=== PATIENT | male | born 1945 | race Caucasian/White ===

== ENCOUNTER 2019-06-08 11:07 | Emergency (ER) | payer OTHER ==
[2019-06-08] MEDS ORDERED: LIDOCAINE 1% MPF 5 ML VIAL ONE (12:22)
--- NOTE | 2019-06-08 13:05 | EDPHYS ---
Physician Documentation [facility] Name: Preston Mauro Age: 73 yrs Sex: Male : 1945 Arrival Date: 06/08/2019 Time: 11:10 Bed 19 Private MD: ED Physician Gregory Abrams HPI: 06/07 12:22 This 73 yrs old Male presents to ER via Ambulatory with complaints of Boil On la1 Back. 12:22 The patient presents with an abscess of the lumbar area, The patient presents with la1 cellulitis of the lumbar area. Description: The affected area is large, irregular, draining, erythematous, fluctuant. Onset: The symptoms/episode began/occurred 10 day(s) ago. Modifying factors: the symptoms are alleviated by nothing, the symptoms are aggravated by nothing. Severity of symptoms: At their worst the symptoms were moderate. The patient has not experienced similar symptoms in the past. pt has been on amoxicillin for the last 4 days. Historical: - Allergies: 11:29 No Known Allergies; hb - Immunization history:: Adult Immunizations up to date. - Social history:: Smoking status: Patient reports use of chewing tobacco. ROS: 12:23 Constitutional: Negative for fever, chills, and weight loss, Eyes: Negative for injury, la1 pain, redness, and discharge, ENT: Negative for injury, pain, and discharge, Neck: Negative for injury, pain, and swelling, Cardiovascular: Negative for chest pain, palpitations, and edema, Respiratory: Negative for shortness of breath, cough, wheezing, and pleuritic chest pain, Abdomen/GI: Negative for abdominal pain, nausea, vomiting, diarrhea, and constipation, MS/Extremity: Negative for injury and deformity, Neuro: Negative for headache, weakness, numbness, tingling, and seizure. 12:23 Skin: Positive for abscess, cellulitis, of the lumbar area and back. Exam: 12:24 Constitutional: This is a well developed, well nourished patient who is awake, alert, la1 and in no acute distress. Head/Face: Normocephalic, atraumatic. Chest/axilla: Normal chest wall appearance and motion. Nontender with no deformity. No lesions are appreciated. Cardiovascular: Regular rate and rhythm with a normal S1 and S2. No gallops, murmurs, or rubs. Normal PMI, no JVD. No pulse deficits. Respiratory: Lungs have equal breath sounds bilaterally, clear to auscultation Abdomen/GI: Soft, non-tender, with normal bowel sounds. Back: No spinal tenderness. No costovertebral tenderness. Full range of motion. 12:24 Skin: abscess, that is moderate sized, of the lumbar area, with drainage, with fluctuance, with induration, with surrounding cellulitis, cellulitis, that is moderate, irregular, well demarcated, on the lumbar area, induration, that is moderate is noted. Vital Signs: 11:27 BP 156 / 85; Pulse 79; Resp 16; Temp 97.9; Pulse Ox 97% ; Weight 92.99 kg; Height 6 ft. hb 2 in. (187.96 cm); Pain 4/10; 11:27 Body Mass Index 26.32 (92.99 kg, 187.96 cm) hb Procedures: 13:02 I \T\ D: Incision and drainage was performed for an abscess of the lumbar area and back la1 Prepped with Betadine, Anesthetized with 5 ml's 1% Lidocaine. Incised with #11 blade. Drained large amount purulent fluid. serosanguinous fluid. bloody fluid. Loculations removed. Cultures obtained. Abscess cavity explored. Packed with iodoform gauze, Dressing: sterile 4x4 gauze, the patient tolerated the procedure well. MDM: 11:41 Patient medically screened. la1 13:04 Data reviewed: vital signs, nurses notes, I have discussed the patient's la1 presentation/case with the attending Emergency Department Physician; and as a result, I will continue to observe the patient. Data interpreted: Pulse oximetry: on room air is 97 %. Counseling: I had a detailed discussion with the patient and/or guardian regarding: the historical points, exam findings, and any diagnostic results supporting the discharge/admit diagnosis, the need for outpatient follow up, a family practitioner, to return to the emergency department if symptoms worsen or persist or if there are any questions or concerns that arise at home. Special discussion: I discussed in detail with the patient the higher chance of wound infection based on his presenting history. 06/07 12:58 Order name: Wound Culture ls4 06/07 12:08 Order name: Dressing - Wound; Complete Time: 12:43 la1 06/07 12:08 Order name: Gloves, Sterile; Complete Time: 12:43 la06/07 12:08 Order name: I\T\D Setup; Complete Time: 12:43 06/07 12:08 Order name: Scalpel; Complete Time: 12:43 Administered Medications: 12:15 Drug: Lidocaine (1 %) 20 ml Volume: 20 ml; Route: Infiltration; ls4 Disposition: 13:46 Co-signature as Attending Physician, Gregory Abrams MD I agree with the assessment and kdr plan of care. Disposition: 06/08/19 13:04 Discharged to Home. Impression: Cutaneous abscess of back [any part, except buttock]. - Condition is Stable. - Discharge Instructions: Skin Abscess, Cellulitis, Adult, Incision and Drainage, Wound Care, Wound Packing. - Prescriptions for Doxycycline Hyclate 100 mg Oral Tablet - take 1 tablet by ORAL route every 12 hours; 20 tablet. Bactrim DS 800- 160 mg Oral Tablet - take 1 tablet by ORAL route every 12 hours for 10 days; 20 tablet. - Medication Reconciliation Form, Thank You Letter, Antibiotic Education form. - Follow up: Private Physician; When: 2 - 3 days; Reason: Wound Recheck, Recheck today's complaints, Re-evaluation by your physician. Follow up: Emergency Department; When: As needed; Reason: Wound Recheck, Fever > 102 F, Recheck today's complaints, Continuance of care. - Problem is new. - Symptoms have improved. Signatures: Dispatcher [employer] EDME Gregory Abrams MD MD kdr Munoz, Edgar RN RN em Roby Pack FNP-C TECHNICAL SUPPORT ASSISTANT-Cla1 Krista Virk RN RN Eunice De La Garza RN RN ls4 Corrections: (The following items were deleted from the chart) 13:32 13:04 06/08/2019 13:04 Discharged to Home. Impression: Cutaneous abscess of back [any em part, except buttock]. Condition is Stable. Discharge Instructions: Skin Abscess, Cellulitis, Adult, Incision and Drainage, Wound Care. Prescriptions for Doxycycline Hyclate 100 mg Oral Tablet - take 1 tablet by ORAL route every 12 hours; 20 tablet, Bactrim DS 800-160 mg Oral Tablet - take 1 tablet by ORAL route every 12 hours for 10 days; 20 tablet. and Forms are Medication Reconciliation Form, Thank You Letter, Antibiotic Education, Prescription Opioid Use. Follow up: Private Physician; When: 2 - 3 days; Reason: Wound Recheck, Recheck today's complaints, Re-evaluation by your physician. Follow up: Emergency Department; When: As needed; Reason: Wound Recheck, Fever > 102 F, Recheck today's complaints, Continuance of care. Problem is new. Symptoms have improved. la1
--- NOTE | 2019-06-08 13:05 | ER ---
Nurse's Notes [facility] Name: Preston Mauro Age: 73 yrs Sex: Male : 1945 Arrival Date: 06/08/2019 Time: 11:10 Bed 19 Private MD: Diagnosis: Cutaneous abscess of back [any part, except buttock] Presentation: 06/07 11:27 Chief complaint: Abscess on left mid back x 1 week. On amoxicillin day 4. Coronavirus hb screen: Proceed with normal triage. Ebola Screen: No symptoms or risks identified at this time. Initial Sepsis Screen: Does the patient meet any 2 criteria? No. Patient's initial sepsis screen is negative. Does the patient have a suspected source of infection? No. Patient's initial sepsis screen is negative. Risk Assessment: Do you want to hurt yourself or someone else? Patient reports no desire to harm self or others. Onset of symptoms was June 08, 2019. 11:27 Method Of Arrival: Ambulatory hb 11:27 Acuity: ELOY 4 hb Historical: - Allergies: 11:29 No Known Allergies; hb - Immunization history:: Adult Immunizations up to date. - Social history:: Smoking status: Patient reports use of chewing tobacco. Screenin:30 Abuse screen: Denies threats or abuse. Denies injuries from another. Nutritional ca1 screening: No deficits noted. Tuberculosis screening: No symptoms or risk factors identified. Fall Risk None identified. Assessment: 11:30 General: Appears in no apparent distress. comfortable, Behavior is calm, cooperative, ca1 appropriate for age. Pain: Complains of pain in back and lumbar area Pain currently is 7 out of 10 on a pain scale. Neuro: Level of Consciousness is awake, alert, obeys commands, Oriented to person, place, time, situation, Appropriate for age. Cardiovascular: Heart tones S1 S2 present Capillary refill < 3 seconds Patient's skin is warm and dry. Respiratory: Airway is patent Respiratory effort is even, unlabored, Respiratory pattern is regular, symmetrical, Breath sounds are clear bilaterally. GI: Abdomen is flat, non-distended, Bowel sounds present X 4 quads. Abd is soft and non tender X 4 quads. : No signs and/or symptoms were reported regarding the genitourinary system. EENT: No signs and/or symptoms were reported regarding the EENT system. Derm: Skin is intact, is healthy with good turgor, Skin is pink, warm \T\ dry. Abscess located on lumbar area is quarter sized, has purulent drainage, is hot to touch, is red, is raised. Musculoskeletal: Circulation, motion, and sensation intact. Capillary refill < 3 seconds. Vital Signs: 11:27 BP 156 / 85; Pulse 79; Resp 16; Temp 97.9; Pulse Ox 97% ; Weight 92.99 kg; Height 6 ft. hb 2 in. (187.96 cm); Pain 4/10; 11:27 Body Mass Index 26.32 (92.99 kg, 187.96 cm) hb ED Course: 11:10 Patient arrived in ED. ag5 11:22 Marely Naranjo, GHISLAINE is Primary Nurse. ca1 11:29 Triage completed. hb 11:29 Arm band placed on. hb 11:30 Patient has correct armband on for positive identification. Bed in low position. Call ca1 light in reach. Side rails up X 1. Pulse ox on. NIBP on. 11:30 No provider procedures requiring assistance completed. Patient did not have IV access ca1 during this emergency room visit. 11:41 Roby Pack [facility]-C [facility] la1 11:41 Gregory Abrams MD is Attending Physician. la1 12:10 Report given to GHISLAINE Dawson. ca1 Administered Medications: 12:15 Drug: Lidocaine (1 %) 20 ml Volume: 20 ml; Route: Infiltration; ls4 Outcome: 13:04 Discharge ordered by MD. la1 13:32 Discharged to home ambulatory. em 13:32 Condition: good 13:32 Discharge instructions given to patient, Instructed on discharge instructions, follow up and referral plans. medication usage, wound care, Demonstrated understanding of instructions, follow-up care, medications, wound care, Prescriptions given X 2. 13:32 Patient left the ED. em Signatures: Allan Souza RN RN em Roby Pack FNP-C LEATHER TOOLER-Cla1 Krista Virk RN RN Eunice De La Garza RN RN ls4 Marely Naranjo RN RN ca1 Mary Felix ag5 Corrections: (The following items were deleted from the chart) 13:19 11:30 Pain: Complains of pain in thoracic area Pain currently is 7 out of 10 on a pain ca1 scale. ca1 13:19 11:30 Derm: Skin is intact, is healthy with good turgor, Skin is pink, warm \T\ dry. ca1 Abscess located on thoracic area is quarter sized, has purulent drainage, is hot to touch, is red, is raised, ca1
[2019-06-08 13:39] VITALS: BP 156/85; TEMP 97.9; O2SAT 97
== END 2019-06-08 13:32 | disposition home or self-care (01) ==
LOC: ER 11:07
PROC: 0J970ZZ Drainage of Back Subcutaneous Tissue and Fascia, Open Approach (ICD-10-PCS; principal; 2019-06-08)
DX: L02.212 Cutaneous abscess of back [any part, except buttock and flank] (principal)
CPT/HCPCS: 87070; 87205; 99283